=== PATIENT | male | born 1970 | race Hispanic/Latino ===

== ENCOUNTER 2019-03-06 11:30 | Outpatient (CLI) | payer OTHER ==
--- NOTE | 2019-03-06 12:05 | RAD ---
EXAM: Two views chest PROVIDED CLINICAL HISTORY: Cough, COPD, smoking history for 25+ years. COMPARISON: None FINDINGS: Cardiac silhouette and pulmonary vasculature are within normal limits. The lungs are clear. The osse ous structures have a normal appearance. IMPRESSION: No acute cardiopulmonary process.
== END 2019-03-06 11:31 | disposition home or self-care (01) ==
LOC: BICRAD 11:30
PROVIDERS: ATTEND Family Medicine
DX: J44.9 Chronic obstructive pulmonary disease, unspecified (principal); R05 Cough
CPT/HCPCS: 71046

== ENCOUNTER 2019-07-14 11:10 | Emergency (ER) | payer SELFPAY ==
--- NOTE | 2019-07-14 12:36 | RAD ---
Left shoulder 3 views HISTORY: Left shoulder pain. FINDINGS: Glenohumeral and acromioclavicular alignment are maintained. No acute fracture or dislocati on. No aggressive osseous erosions. IMPRESSION: Normal exam.
== END 2019-07-14 12:35 | disposition home or self-care (01) ==
LOC: ERS 11:10
DX: M25.512 Pain in left shoulder (principal)
CPT/HCPCS: 93005